=== PATIENT | female | born 1970 | race African-American/Black ===

== ENCOUNTER 2022-02-23 13:12 | Emergency (ER) | payer MEDICAID ==
[~2022-02-23] VITALS: Ht 177.8 cm; Wt 105.0 kg
[~2022-02-23 13:12] MED LIST: FERR1TAB51
[2022-02-23 13:20] VITALS: BP 128/55
== END 2022-02-23 23:15 | disposition left against medical advice (07) ==
LOC: ER 13:12
DX: Z53.21 Procedure and treatment not carried out due to patient leaving prior to being seen by health care provider (principal)